=== PATIENT | female | born 1955 | race Caucasian/White ===

== ENCOUNTER 2017-10-20 21:10 | Emergency (ER) | payer SELFPAY ==
[~2017-10-20] VITALS: Ht 154.9 cm; Wt 73.0 kg
--- NOTE | 2017-10-20 21:10 | NUR ---
PT ÁNGEL ALS. TAKEN TO BED 5
[2017-10-20 21:19] VITALS: BP 168/90
[2017-10-20 21:20] VITALS: BP 168/90
--- NOTE | 2017-10-20 21:20 | NUR ---
ÁNGEL FROM HOME FOR LOW BLOOD SUGAR OF 26. SON WITH MOM. PT TALKING AND ALERT UPON ARRIVAL TO THE ER. NO N/V/D; SKIN IS PINK/WARM/DRY; AAOX4 WITH EVEN AND STEADY GAIT; LUNGS CLEAR BL; HR EVEN AND REGULAR; PATIENT POSITIONED FOR COMFORT; HOB ELEVATED; BEDRAILS UP X2; BED DOWN.
--- NOTE | 2017-10-20 21:21 | NUR ---
PT REFUSED TO CHANGE INTO A GOWN.
[2017-10-20] MEDS ORDERED: DEXTROSE 50% 50 ML SYR IVP ONE (21:30)
[2017-10-20] MEDS ORDERED: NACL 0.9% 1,000 ML IV ONE (21:30)
[2017-10-20] MEDS ORDERED: DEXTROSE 10% 0 ML IV ONE (21:33)
--- NOTE | 2017-10-20 21:43 | NUR ---
Dr. Valero evaluating patient at bedside.
--- NOTE | 2017-10-20 22:06 | NUR ---
Abhijeet ansari in [facility] - 10/20/17 at 2206 by TAYO X-Ray at bedside.
[2017-10-20 22:33] LABS: BASOPHILS % (AUTO) 0.4 % (0.0-2.0); EOSINOPHILS # (AUTO) 0.5 K/uL (0-0.4); EOSINOPHILS % (AUTO) 7.1 % (0.0-4.0); HEMATOCRIT 39.4 % (36-48); HEMOGLOBIN 13.2 g/dL (12.0-16.0); LYMPHOCYTES # (AUTO) 1.9 K/uL (2.5-16.5); LYMPHOCYTES % (AUTO) 27.1 % (20.5-51.1); MEAN CORPUSCULAR HEMOGLOBIN 32 pg (27-31); MEAN CORPUSCULAR HGB CONC 34 g/dL (33-37); MEAN CORPUSCULAR VOLUME 93.9 fL (80-94); MONOCYTES # (AUTO) 0.4 K/uL (0.8-1.0); MONOCYTES % (AUTO) 5.7 % (1.7-9.3); NEUTROPHILS # (AUTO) 4.2 K/uL (1.8-7.7); NEUTROPHILS % (AUTO) 59.7 % (42.2-75.2); PLATELET COUNT (AUTO) 139 K/uL (140-450); RED BLOOD CELL COUNT(AUTO) 4.19 MIL/uL (4.20-5.40); WHITE BLOOD COUNT (AUTO) 7.1 K/uL (4.8-10.8)
--- NOTE | 2017-10-20 22:43 | NUR ---
X-Ray at bedside.
[2017-10-20 22:47] LABS: ANION GAP 11.1 (8-16); CREATININE 0.7 mg/dL (0.6-1.3); POTASSIUM 4.1 mmol/L (3.5-5.1)
[2017-10-20 22:51] LABS: PROTHROMBIN TIME 10.1 secs (10.8-13.4)
[2017-10-20 22:53] LABS: ALBUMIN 3.6 g/dL (3.4-5.0); TOTAL BILIRUBIN 0.2 mg/dL (0.0-1.0)
--- NOTE | 2017-10-20 23:25 | NUR ---
Patient left without discharge instructions. Pt asked questions prior to leaving. Pt did not want to wait for dischareg instructions and left.
== END 2017-10-20 23:25 | disposition home or self-care (01) ==
LOC: MED 21:10 → EDSEX 21:10 → MED 23:25
DX: E11.649 Type 2 diabetes mellitus with hypoglycemia without coma (principal); R41.82 Altered mental status, unspecified
CPT/HCPCS: 36415; 71045; 80053; 82948; 84484; 85025; 85610; 85730; 93005; 96361; 96374; 99285; Q0092; J7030